=== PATIENT | female | born 1965 | race Caucasian/White ===

== ENCOUNTER 2016-12-25 09:45 | Emergency (ER) | payer OTHER ==
[~2016-12-25] VITALS: Ht 162.6 cm; Wt 96.6 kg
[~2016-12-25 09:45] MED LIST: ADVIL200 MG PO; ASPIR 8181 M1 PO; CYMBALTA30 MG PO; FLEXERIL10 MG PO; HYDROCHLOROTHIA25 MG PO; Hydrodiuril,Oretic,E PO; INDERAL LA80 MG PO; INDERAL80 MG PO; LIBRAX, CLI1 CAPSULE PO; Levothroid,Synthroid PO; PERCOCET 5/31 TABLET PO; PRAVACHOL40 MG PO; PREDNISONE10 MG PO; PRILOSEC40 MG PO; PROTONIX40 MG PO; SYNTHROID100 MCG PO; SYNTHROID125 MCG PO; SYNTHROID25 MCG PO; ZOFRAN4 MG PO
[2016-12-25 10:47] LABS: HEMATOCRIT 44.1 % (36.0-46.0); MCH 29.4 PG (29.0-34.0); MCHC 33.1 G/DL (30.0-36.0); MCV 88.9 FL (83-99); MEAN PLAT.VOLUME 11.1 uM^3 (9.5-12.4); PLATELET COUNT 314 K/uL (156-360); RBC DIS.WIDTH-CV 13.5 % (11.8-14.6); RBC DIS.WIDTH-SD 43.8 % (39-53); RED BLOOD COUNT 4.96 M/uL (3.80-5.20); WHITE BLOOD COUNT 11.1 K/uL (4.1-10.2)
[2016-12-25 11:21] LABS: CHLORIDE 102 mEq/L (99-109); POTASSIUM 3.8 mEq/L (3.7-5.4); SODIUM 138 mEq/L (136-147)
[2016-12-25 11:22] LABS: GLUCOSE 109 mg/dL (70-99)
[2016-12-25 11:24] LABS: ANION GAP 12 MEQ/L (2-14)
[2016-12-25 11:26] LABS: GFR ESTIMATE (CALCULATED) > 59 mL/min/
[2016-12-25 11:27] LABS: UREA NITROGEN (BUN) 9 mg/dL (9-23)
[2016-12-25 13:06] VITALS: BP 130/85
== END 2016-12-25 13:07 | disposition left against medical advice (07) ==
LOC: EME 09:45
DX: R06.02 Shortness of breath (principal); R09.89 Other specified symptoms and signs involving the circulatory and respiratory systems; R05 Cough; E11.9 Type 2 diabetes mellitus without complications; I10 Essential (primary) hypertension; E78.5 Hyperlipidemia, unspecified; Z88.5 Allergy status to narcotic agent; Z79.84 Long term (current) use of oral hypoglycemic drugs
CPT/HCPCS: 71020; 80048; 81003; 85027; 93005; 99281